=== PATIENT | male | born 1955 | race Caucasian/White ===

== ENCOUNTER 2020-12-24 17:56 | Emergency (ER) | payer MEDICARE ==
[2020-12-24] MEDS ORDERED: MEDROL 4MG DOSEP4 MG PO (19:57)
== END 2020-12-24 20:22 | disposition home or self-care (01) ==
LOC: FER 17:56
DX: M25.552 Pain in left hip (principal)
CPT/HCPCS: 73502; J1885

== ENCOUNTER 2021-09-22 08:58 | Emergency (ER) | payer MEDICARE ==
[~2021-09-22 08:58] MED LIST: MEDROL 4MG DOSEP4 MG PO
[2021-09-22 09:31] LABS: BASOPHIL 0.6 % (0-2); EOSINOPHIL 1.7 % (0-7); HCT 39.6 % (42.0-52.0); HGB 13.6 g/dl (13.2-18.0); LYMPHOCYTE 10.1 % (15-48); MCH 31.3 pg (25.0-31.0); MCHC 34.3 g/dL (32.0-36.0); MONOCYTE 11.2 % (0-12); MPV 9.9 fL (6.0-9.5); NEUTROPHIL 75.6 % (41-80); NRBC 0; PLT 219 K/uL (150-400); RBC 4.35 M/uL (4.70-6.00); RDW 12.2 % (11.5-14.0); WBC 4.8 K/uL (4.0-10.5)
[2021-09-22 09:50] LABS: BUN/CREAT RATIO (CALC) 8.9 RATIO; CREATININE 1.01 mg/dL (0.67-1.17); POTASSIUM 3.6 mmol/L (3.5-5.1)
[2021-09-22 09:51] LABS: INFLUENZA A NAA NEGATIVE (NEGATIVE)
[2021-09-22 10:00] LABS: CORONAVIRUS 2019 SARS-COV-2 POSITIVE (NEGATIVE)
[2021-09-22] MEDS ORDERED: ONDANSETRON ODT4 MG PO (10:13)
[2021-09-22] MEDS ORDERED: PAXLOVID 150-11 EACH PO (10:13)
== END 2021-09-22 10:33 | disposition home or self-care (01) ==
LOC: FER 08:58
PROVIDERS: Emergency Medicine
DX: U07.1 COVID-19 (principal)
CPT/HCPCS: 36415; 71045; 80048; 85025; U0002